=== PATIENT | female | born 1995 | race Caucasian/White ===

== ENCOUNTER 2016-12-23 12:13 | Emergency (ER) | payer MEDICAID ==
[~2016-12-23] VITALS: Ht 157.5 cm; Wt 61.0 kg
[2016-12-23 12:21] VITALS: BP 104/59
== END 2016-12-23 13:53 | disposition home or self-care (01) ==
LOC: ED 12:13
DX: F41.1 Generalized anxiety disorder (principal)
CPT/HCPCS: J2060

== ENCOUNTER 2016-12-24 16:36 | Emergency (ER) | payer MEDICAID ==
[~2016-12-24] VITALS: Ht 157.5 cm; Wt 61.2 kg
[2016-12-24 19:28] VITALS: BP 122/76
== END 2016-12-24 19:28 | disposition home or self-care (01) ==
LOC: ED 16:36
DX: F41.9 Anxiety disorder, unspecified (principal)

== ENCOUNTER 2018-01-30 17:17 | Emergency (ER) | payer MEDICAID ==
[~2018-01-30] VITALS: Ht 157.5 cm; Wt 66.8 kg
[2018-01-30 17:32] VITALS: Ht 157.5 cm; Wt 66.8 kg
[2018-01-30 18:40] VITALS: BP 121/83
== END 2018-01-30 18:40 | disposition home or self-care (01) ==
LOC: ED 17:17
DX: M94.0 Chondrocostal junction syndrome [Tietze] (principal); F41.9 Anxiety disorder, unspecified
CPT/HCPCS: J1885; Q0092

== ENCOUNTER 2018-03-24 15:39 | Emergency (ER) | payer MEDICAID ==
[~2018-03-24] VITALS: Ht 152.4 cm; Wt 66.7 kg
[2018-03-24 15:53] VITALS: BP 108/60; Ht 152.4 cm; Wt 66.7 kg
== END 2018-03-24 18:23 | disposition left against medical advice (07) ==
LOC: ED 15:39
DX: Z53.21 Procedure and treatment not carried out due to patient leaving prior to being seen by health care provider (principal)

== ENCOUNTER 2018-05-05 13:19 | Emergency (ER) | payer OTHER ==
[~2018-05-05] VITALS: Ht 157.5 cm; Wt 67.1 kg
[2018-05-05 13:31] VITALS: Ht 157.5 cm; Wt 67.1 kg
[2018-05-05 14:33] LABS: BASOPHIL % 0.3 % (0-2); PLATELET COUNT 232 x10^3mcL (130-400)
[2018-05-05 14:34] LABS: RED CELL DISTRIBUTION WIDTH 15.9 % (11.5-14.5)
[2018-05-05 16:18] VITALS: BP 104/55
== END 2018-05-05 16:18 | disposition home or self-care (01) ==
LOC: ED 13:19
PROVIDERS: Emergency Medicine
DX: O26.891 Other specified pregnancy related conditions, first trimester (principal); R10.31 Right lower quadrant pain; R10.32 Left lower quadrant pain; F41.9 Anxiety disorder, unspecified; M41.9 Scoliosis, unspecified; R11.0 Nausea; Z3A.10 10 weeks gestation of pregnancy
CPT/HCPCS: 36415